=== PATIENT | female | born 1995 | race Caucasian/White ===

== ENCOUNTER 2016-10-20 09:28 | Emergency (ER) | payer MEDICAID ==
[2016-10-20 09:39] VITALS: BP 135/68
--- NOTE | 2016-10-20 10:03 | ERNOTE ---
Lower Extremity HPI - General Lower Extremities Pain: leg: left, thigh: left Time Seen by Provider: 10/20/16 09:52 Source: patient Exam Limitations: no limitations - Immun/Allergies/Home Medications Immunizations: IMMUNIZATION HX Immunizations Up to Date Yes History of Influenza Vaccine Yes Hx Pneumococcal Vaccination No Allergies/Adverse Reactions: Allergies Allergy/AdvReac Type Severity Reaction Status Date / Time No Known Allergies Allergy Verified 12/14/15 00:24 Home Medications: HOME MEDICATIONS Ibuprofen [Motrin] 800 mg PO Q6H PRN #0 tablet 12/15/15 [Last Taken Unknown] Cyclobenzaprine HCl [Flexeril] 10 mg PO TID PRN #30 tab 10/20/16 [Last Taken Unknown] Escitalopram Oxalate [Lexapro] 20 mg PO DAILY 10/20/16 [Last Taken Unknown] Levonorgestrel-Ethin Estradiol [Chateal] 1 each PO 10/20/16 [Last Taken Unknown] Naproxen [Naprosyn] 500 mg PO BID #60 tablet 10/20/16 [Last Taken Unknown] busPIRone HCL [Buspar] 5 mg PO DAILY 10/20/16 [Last Taken Unknown] - History of Present Illness Narrative: Patient was sitting crosslegged last night for an extended period of time and noticed that when she got up she was not able to straighten her right leg and had considerable spasm in the back of the left thigh and into the left calf. She rates the pain as at least moderate intensity is not severe when she tries to straighten her leg. Patient denies any trauma. Occurred: yesterday Location of Incident: home Method of Injury: Reports: no apparent injury Loss of Consciousness: Reports: no loss of consciousness Associated Symptoms: Reports: other injuries - painful to straighten the left leg Other Injuries: Reports: none Review of Systems - Review of Systems Constitutional: Present: See HPI EYE: Present: no symptoms reported ENT: Present: no symptoms reported Respiratory: Present: no symptoms reported Cardiology: Present: no symptoms reported Gastrointestinal/Abdominal: Present: no symptoms reported Genitourinary: Present: no symptoms reported Musculoskeletal: Present: See HPI, muscle stiffness Skin: Present: no symptoms reported Neurological: Present: no symptoms reported Endocrine: Present: no symptoms reported Hematologic/Lymphatic: Present: no symptoms reported Psych: Present: no symptoms reported - Patient's Past Medical History Patient History - Medical: Anxiety, Depression, Kidney stone, UTI'S Patient History - Cardiac/Respiratory: Asthma Patient History - Cancer: No Hx of Cancer Patient History - Surgical Procedures: No surgical history Patient History - Other: None LMP (females 10-50): 1 month - Family History Mother Family History - Medical: Family History - Cardiac/Respiratory: Asthma Father Family History - Cardiac/Respiratory: Hypertension - Social History Living Situations: significant other Abuse History: No History of abuse Psych History: Hx of Anxiety, Hx of Depression Smoking Status: Never smoker Have you smoked in the past 12 months: No Alcohol Use: occasionally Drug Use: none - Immunizations Immunizations Up to Date: Yes Hx Pneumococcal Vaccination: No History of Influenza Vaccine: Yes Physical Exam - Physical Exam General Appearance: Present: wd/wn, alert, moderate distress Head Exam: Present: normal inspection Eye Exam: Normal inspection: bilateral, PERRL: bilateral Ears, Nose, Throat: Present: normal ENT inspection, H, normal pharynx Neck: Present: normal inspection, nontender Respiratory: Present: no respiratory distress, normal breath sounds, no accessory muscle use, chest nontender, lungs clear Cardiovascular/Chest: Present: regular rate, rhythm, no murmur, normal peripheral pulses Gastrointestinal/Abdominal: Present: normal bowel sounds, nontender, nondistended, soft, no organomegaly Rectal Exam: Present: deferred Back Exam: Present: normal inspection, normal range of motion Extremity Exam: Present: no edema, decreased range of motion, other - patient has muscle spasm in the left hamstring as well as in the left gastrocnemius Neurological Exam: Present: alert, oriented, normal mood/affect Skin Exam: Present: normal color, warm/dry Lymphatic Exam: Present: no adenopathy ED Progress - Vital Signs Patient's Vital Signs:: I have reviewed the patient's vital signs. Vital Signs: Vital Signs 10/20/16 09:34 Temperature 36.4 C L Pulse Rate 87 Respiratory 14 Rate Blood Pressure 135/68 O2 Sat by Pulse 97 Oximetry - Progress/Reassessment Chief Complaint: Lower Extremity Pain/ Injury Plan - Plan Plan: Patient will be started on a nonsteroidal as well as muscle relaxer. Patient was told to go home and soak in hot bathtub and then start stretching out her hamstrings as well as her gastroc. Patient told to refrain from any cross legged sitting and perhaps take up some form of exercise, perhaps yoga, I will provide her with better flexibility. Departure Clinical Impression: Muscle spasms of lower extremity Qualifiers: Laterality: left Qualified Code(s): M62.838 - Other muscle spasm - Departure Disposition: Home self-care Condition: Good Instructions: Muscle Cramps and Spasms, [id number] Referrals: Vanessa Oliver ARNP [Primary Care Provider] - Prescriptions: Cyclobenzaprine HCl [Flexeril] 10 mg PO TID PRN #30 tab PRN Reason: MUSCLE SPASMS Naproxen [Naprosyn] 500 mg PO BID #60 tablet
== END 2016-10-20 10:07 | disposition home or self-care (01) ==
LOC: ER 09:28
DX: M62.838 Other muscle spasm (principal)